=== PATIENT | female | born 1965 | race Caucasian/White ===

== ENCOUNTER 2020-12-08 07:34 | Outpatient (CLI) | payer BC, SELFPAY ==
--- NOTE | 2020-12-25 12:50 | WPDHOMESLEEP ---
Sleep Study - Home Unattended Date of Study: 12/08/20 Ordering Provider: Ruby Goodrich NP Interpreting Provider: Jennie Mitchell MD Home Sleep Study Type: Apnea Link Air Height: 1.52 m Weight: 136.253 kg Body Mass Index: 58.6 Neck Circumference (inches): 19 Birch Tree: 9 Reason for Sleep Study Hypersomnia Sleep History Donna South is a 55 year old female who is able to fall asleep but is not able to stay asleep. She wakes up feeling non refreshed. This started about 8 years ago. She does not awaken from sleep feeling short of breath. She frequently awakens at night with heartburn, belching or coughing. She frequently snores but not loudly enough that others complain. she does not wake up gasping for breath at night. She does not have breathing problems at night reported to her by others. She does not sweat excessively at night. She does not notice her heart pounding or beating irregularly night. She occasionally falls asleep during the day, rarely falls asleep involuntarily but never falls asleep while driving. She does not have loss of muscle tone was strong emotion. She does not have daytime difficulties due to excessive sleepiness. She does not feel paralyzed on waking or falling asleep. She does not have vivid dreamlike scenes upon awakening or falling asleep. She does not feel afraid to go to sleep. She does not have nightmares. She does not remember her dreams. She constantly has racing thoughts. She rarely feels sad or depressed. She frequently has anxiety. She rarely has muscular tension or notices parts of her body jerking. She does not kick at night. She does not have crawling and aching feelings in her legs. She occasionally has leg pain at night. She does not have morning jaw pain and does not grind her teeth during sleep. She occasionally has bothered by pain during the day, occasionally awakened by pain at night and occasionally wakes up feeling stiff in the morning. She frequently wakes up with sore or achy muscles and wakes up with pain in the neck and spine. She has fatigue, panic, headaches, insomnia and she takes antacids regularly. She reports 60 lb weight gain in the last year. Normal bedtime is Between 9:00 p.m. and 11:00 p.m. falling asleep within 15 minutes waking 3 or 4 times to use the bathroom, try to reposition to get comfortable and return to sleep. It takes about 15 minutes to an hour for her to return to sleep. She wakes the morning between 4:30 a.m. and 6:00 a.m.. Her weekend schedule is the same. She estimates getting 3-5 hours of sleep at night. she does not generally take naps. A short nap may be refreshing. She never awakens feeling refreshed. Habits: quit tobacco 8 months ago. Caffeine 3-5 servings a day. No alcohol or recreational drugs. [facility] [place] Past Medical History Medical History (Updated 12/25/20 @ 12:59 by Jennie Mitchell MD) Anxiety Anxiety with depression Candidal intertrigo Headache Hypersomnia IBS (irritable bowel syndrome) Mastitis Migraine headache without aura Morbid obesity with BMI of 50.0-59.9, adult Psoriasis Social anxiety disorder Surgical History Surgical History (Updated 12/25/20 @ 12:58 by Jennie Mitchell MD) Hx of appendectomy Hx of cholecystectomy Previous section x 2 S/P partial hysterectomy S/P tonsillectomy Family History Family History (Updated 10/05/20 @ 08:20 by Donna Granger MA) Father Hypertension Heart disease Mother Hypertension Anxiety Grandparent Hypertension Social History Social History (Updated 10/05/20 @ 08:24 by Donna Granger MA) Smoking status: Former smoker Tobacco type: e-cigarettes/vaping Alcohol intake: never Substance use: never Medications Home Medications Medication Instructions Recorded Confirmed Type amoxicillin 875 mg-potassium 1 tablet PO Q12H #20 tablet 10/05/20 10/05/20 Rx clavulanate 125 mg tablet nystatin-triamcinolone 100,000 1 appl
[2020-12-25 13:03] VITALS: BMI 58.6
== END 2020-12-11 10:00 | disposition home or self-care (01) ==
LOC: ANHCSM 01-02 07:34
PROVIDERS: PCP Nurse Practitioner Family; Visit Provider Nurse Practitioner Family
DX: G47.33 Obstructive sleep apnea (adult) (pediatric) (principal); G47.10 Hypersomnia, unspecified; Z68.43 Body mass index [BMI] 50.0-59.9, adult
CPT/HCPCS: 95806